=== PATIENT | male | born 2000 ===

== ENCOUNTER 2024-07-18 17:00 | Emergency (ER) | payer MEDICAID, SELFPAY ==
[2024-07-18 17:06] VITALS: BP 133/74; PULSE 66; RESP 18; TEMP 37.4; O2SAT 97; BMI 17.6
--- NOTE | 2024-07-18 21:09 | PC.NURSE ---
No answer in the WR, no answer on personal cell phone.
== END 2024-07-18 21:17 | disposition left against medical advice (07) ==
LOC: HO.ED 21:13
PROVIDERS: Emergency Provider Emergency Medicine
DX: R68.84 Jaw pain (principal)
CPT/HCPCS: 99281

== ENCOUNTER 2024-11-13 13:10 | Emergency (ER) | payer MEDICAID, SELFPAY ==
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
[2024-11-13 13:33] VITALS: BP 127/74; PULSE 75; RESP 16; TEMP 36.8; O2SAT 99; BMI 16.8
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
[2024-11-13 14:36] VITALS: BP 127/74; PULSE 75; RESP 16; TEMP 36.8; O2SAT 99
--- OUTSIDE RECORDS SUMMARY | 2024-11-13 15:40 | XMS_ITS | Clinical Summary ---
Author Organization [facility] Address [address] [place] [phone] Phone Care Team Providers Care Shirt Finisher Name Role Phone Unavailable Primary Care Provider Unavailabl e Immunizations Immunization Administration Dates Next Due DTP 03/05/2003, 0,05/03/1999,1998, 9 Hep B, ped/adol 05/03/1999,1998,1998 Hib (PRP-T) 03/14/2000,05/03/1999,1998 ,1998 IPV 1998,1998 MMR 03/05/2003,07/10/1999 OPV 03/05/2003,03/14/2000 Pneumococcal Conjugate 06/13/2000,03/14/2000 Varicella 07/11/1999,07/10/1999 Social History Tobacco Use Types Packs/Day Years Used Date Smoking Tobacco: Never Assessed Sex and Gender Information Value Date Recorded Sex Assigned at Not on file Legal Sex Male 3:13 PM EDT Gender Identity Not on file Sexual Orientation Not on file Plan of Treatment Health Maintenance Due Date Last Done Comments Varicella Vaccines (2 of 2 - 2-dose childhood series) 04/02/2003 07/11/1999, 07/10/1999 DTaP,Tdap,and Td Vaccines (6 - Tdap) 2009 03/05/2003, 03/14/2000, 05/03/1999, Additional history exists HPV Vaccines (1 - Male 3-dose series) 2013 Influenza Vaccines (#1) 2024 COVID-19 Vaccine (1 - season) 2024 Hepatitis B Vaccines Completed 05/03/1999, 1998, 1998 HIB Vaccines Completed 03/14/2000, 04/05, 1998, Additional history exists Pneumococcal Vaccine Completed 06/13/2000, 03/14/20 IPV Vaccines Completed 03/05/2003, 03/04, 1998, Additional history exists MMR Vaccines Completed 03/05/2003, 07/10/1999 Hepatitis A Vaccines Aged Out No long er eligible based on patient's age to complete this topic Men B Vaccine Aged Out No longer elig ible based on patient's age to complete this topic Meningococcal Vaccine Aged Out No lorene ann-marie eligible based on patient's age to complete this topic
== END 2024-11-13 14:38 | disposition home or self-care (01) ==
LOC: HO.ED 14:32
PROVIDERS: Emergency Provider Emergency Medicine
DX: S89.92XA Unspecified injury of left lower leg, initial encounter (principal); V28.09XA Other motorcycle driver injured in noncollision transport accident in nontraffic accident, initial encounter; M25.562 Pain in left knee; Y93.89 Activity, other specified; Y92.410 Unspecified street and highway as the place of occurrence of the external cause; Y99.9 Unspecified external cause status
CPT/HCPCS: 73564; 99282; 99283

== ENCOUNTER → 2024-11-13 13:36 | Outpatient (BNV) | payer MEDICAID, SELFPAY | PROVIDERS: Emergency Provider Emergency Medicine; Visit Provider Radiology Diagnostic Radiology | DX: M25.562 Pain in left knee (principal); V18.0XXA Pedal cycle driver injured in noncollision transport accident in nontraffic accident, initial encounter | CPT/HCPCS: 73564 ==

== ENCOUNTER 2025-01-16 09:39 | Outpatient (REF) | payer MEDICAID, SELFPAY ==
--- OUTSIDE RECORDS SUMMARY | 2025-01-16 10:16 | XMS_ITS | Clinical Summary ---
Author Organization [employer] Address [address] [facility] [address] [place] [address] Care Team Providers Care Shipfitters Supervisor Name Role Phone Unavailable Primary Care Provider Unavailabl e Social History Tobacco Use Types Packs/Day Years Used Date Smoking Tobacco: Never Assessed Sex and Gender Information Value Date Recorded Sex Assigned at Male 05/03/2022 10:25 AM EDT Legal Sex Male 10:25 AM EDT Gender Identity Choose not to disclose 10:25 AM EDT Sexual Orientation Choose not to disclose 2021 10:25 AM EDT Last Filed Vital Signs Vital Sign Reading Time Taken Comments Blood Pressure 123/66 11/13/2021 12:05 AM EDT Pulse 62 11/13/2021 12:05 AM EDT Temperature - - Respiratory Rate - - Oxygen Saturation - - Inhaled Oxygen Concentration - - Weight 45.7 kg (100 lb 12.8 oz) 022 12:05 AM EDT Height 167.6 cm (5' 6 ) 11/13/2021 12:0 5 AM EDT Body Mass Index 16.27 11/13/2021 12:05 AM EDT Plan of Treatment Health Maintenance Due Date Last Done Comments Depression Screening 1998 HIV Screening 1998 Disability Screening 1998 Alcohol/Substance Use Screening 2010 Tobacco Screening 2010 Family Planning (PISQ) 2013 HPV Vaccines (1 - 3-dose series) 2013 Hepatitis C Screening 2016 DTaP/Tdap/Td Vaccines (1 - Tdap) 2017 Hepatitis B Vaccines (1 of 3 - 19+ 3-dose series) 2017 COVID-19 Vaccine (2023-2 5 season) 2024 Influenza Vaccine (#1) 2025 Zoster Vaccines (1 of 2) 2048 RSV Patients and Pa tients Aged 60 years or older (1 - 1-dose 75+ series) 2073 HIB Vaccines Aged Out No longer eligi ble based on patient's age to complete this topic Hepatitis A Vaccines Aged Out No long er eligible based on patient's age to complete this topic IPV Vaccines Aged Out No longer eligi ble based on patient's age to complete this topic Meningococcal B Vaccine Aged Out No l onger eligible based on patient's age to complete this topic Meningococcal Vaccine Aged Out No lorene ann-marie eligible based on patient's age to complete this topic Pneumococcal Vaccine: Pediat rics (0 to 5 Years) and At-Risk Patients (6 to 49) Years Aged Out No longer eligible b ased on patient's age to complete this topic RSV under 20 months Aged Out No longe r eligible based on patient's age to complete this topic Rotavirus Vaccines Aged Out No longer eligible based on patient's age to complete this topic
== END 2025-01-16 09:40 | disposition home or self-care (01) ==
LOC: HO.HOSX 09:39
PROVIDERS: Visit Provider Physician Assistant
DX: Z13.89 Encounter for screening for other disorder (principal)